=== PATIENT | female | born 1990 | race Caucasian/White ===

== ENCOUNTER 2018-05-19 17:40 | Emergency (ER) | payer BC ==
[2018-05-19 17:55] VITALS: Ht 167.6 cm
[2018-05-19 20:51] VITALS: BP 128/88
== END 2018-05-19 20:51 | disposition home or self-care (01) ==
LOC: ED 17:40
DX: R10.10 Upper abdominal pain, unspecified (principal)

== ENCOUNTER 2018-09-06 17:49 | Emergency (ER) | payer BC | END 2018-09-06 22:03 | disposition home or self-care (01) | LOC: ED 17:49 ==